=== PATIENT | female | born 1955 | race Caucasian/White ===

== ENCOUNTER 2019-06-06 11:34 | Emergency (ER) | payer OTHER ==
[~2019-06-06] VITALS: Ht 172.7 cm; Wt 72.6 kg
[2019-06-06] MEDS ORDERED: HYDROXYZINE HCL10 M1 PO (11:46)
[2019-06-06] MEDS ORDERED: TRAZODONE HCL100 MG PO (11:46)
[2019-06-06] MEDS ORDERED: PENICILLIN VK500 M1 PO (12:29)
[2019-06-06 12:42] VITALS: BP 111/81
== END 2019-06-06 12:50 | disposition home or self-care (01) ==
LOC: ER 11:34
DX: K08.89 Other specified disorders of teeth and supporting structures (principal); J44.9 Chronic obstructive pulmonary disease, unspecified; F17.210 Nicotine dependence, cigarettes, uncomplicated; Z90.710 Acquired absence of both cervix and uterus